=== PATIENT | female | born 1960 | race Caucasian/White ===

== ENCOUNTER 2020-07-04 11:42 | Day surgery (SDC) | payer OTHER ==
[~2020-07-04] VITALS: Ht 162.6 cm; Wt 92.4 kg
[2020-07-04] MEDS ORDERED: CHLORHEXIDINE 15 ML UDC ONE (12:23)
[2020-07-04] MEDS ORDERED: PLEASE ENTER HEIGHT AND WEIGHT MC SCH (12:30)
[2020-07-04] MEDS ORDERED: LACTATED RINGERS 1,000 ML IV SCH (12:30)
[2020-07-04] MEDS ORDERED: PLEASE ENTER ALLERGIES MC SCH (12:30)
[2020-07-04] MEDS ORDERED: MIDAZOLAM 1 MG/ML, 2ML ONE (12:41)
[2020-07-04] MEDS ORDERED: FENTANYL PF 250 MCG/5ML ONE (12:41)
[2020-07-04] MEDS ORDERED: BENA10TA59 PO (12:42)
[2020-07-04] MEDS ORDERED: FISH OIL PO (12:42)
[2020-07-04] MEDS ORDERED: LIRA0.6P SQ (12:42)
[2020-07-04] MEDS ORDERED: DAPA1TAB3 PO (12:42)
[2020-07-04] MEDS ORDERED: INSU100V35 SQ (12:42)
[2020-07-04] MEDS ORDERED: ATOR-2 PO (12:42)
[2020-07-04 12:48] VITALS: BP 135/85
[2020-07-04] MEDS ORDERED: CHLORHEXIDINE 15 ML UDC PO ONE (13:00)
[2020-07-04] MEDS ORDERED: BUPIVACAINE/PF 0.25% ONE (13:29)
[2020-07-04] MEDS ORDERED: EPINEPHRINE 1 MG/ML, 1ML ONE (13:29)
[2020-07-04] MEDS ORDERED: PROPOFOL 10 MG/ML, 20ML ONE (14:22)
[2020-07-04] MEDS ORDERED: SUCCINYLCHOLINE 20 MG/ML, 10ML ONE (14:22)
[2020-07-04] MEDS ORDERED: ONDANSETRON 2MG/ML, 2ML ONE ×2 (14:22→14:25)
[2020-07-04] MEDS ORDERED: ROCURONIUM 10MG/ML,5ML ONE (14:22)
[2020-07-04] MEDS ORDERED: DEXAMETHASONE 4 MG/ML, 5ML ONE (14:22)
[2020-07-04] MEDS ORDERED: PROMETHAZINE 25 MG/ML, 1ML IVPush PRN (15:00)
[2020-07-04] MEDS ORDERED: DIPHENHYDRAMINE 50 MG/ML, 1ML IVPush PRN ×2 (15:00)
[2020-07-04] MEDS ORDERED: hydrALAzine 20 MG/ML, 1ML IV PRN (15:00)
[2020-07-04] MEDS ORDERED: LABETALOL 5MG/ML, 20ML IV PRN (15:00)
[2020-07-04] MEDS ORDERED: MEPERIDINE/PF 25MG/0.5ML IVPush PRN (15:00)
[2020-07-04] MEDS ORDERED: PROMETHAZINE 12.5 MG SUPP PR PRN (15:00)
[2020-07-04] MEDS ORDERED: MIDAZOLAM 1 MG/ML, 2ML IV PRN (15:00)
[2020-07-04] MEDS ORDERED: FENTANYL PF 100 MCG/2ML IV PRN (15:00)
[2020-07-04] MEDS ORDERED: OXYcodone 5 MG/5 ML ORAL.SOL UDC PO PRN (15:00)
[2020-07-04] MEDS ORDERED: ALBUTEROL SULFATE 2.5 MG/3 ML NPPB PRN (15:00)
[2020-07-04] MEDS ORDERED: ACETAMINOPHEN 325 MG TABLET PO PRN (15:00)
[2020-07-04] MEDS ORDERED: DIAZEPAM 5 MG/ML, 2ML IVPush PRN (15:00)
[2020-07-04] MEDS ORDERED: HYDROmorphone 1 MG/ML, 1ML INJ IVPush PRN (15:00)
[2020-07-04] MEDS ORDERED: EPHEDRINE 50 MG/ML, 1ML IVPush PRN (15:00)
[2020-07-04] MEDS ORDERED: ONDANSETRON 2MG/ML, 2ML IVPush PRN (15:00)
[2020-07-04] MEDS ORDERED: ACETAMINOPHEN 650 MG/20.3 ML UDC ONE (15:01)
[2020-07-04] MEDS ORDERED: OXYcodone 5 MG/5 ML ORAL.SOL UDC ONE (15:02)
== END 2020-07-04 17:13 | disposition home or self-care (01) ==
LOC: OUT 11:42
PROVIDERS: ATTEND Orthopaedic Surgery
DX: S52.392A Other fracture of shaft of radius, left arm, initial encounter for closed fracture (principal); S52.292A Other fracture of shaft of left ulna, initial encounter for closed fracture; G89.18 Other acute postprocedural pain; E11.9 Type 2 diabetes mellitus without complications; I10 Essential (primary) hypertension; E78.5 Hyperlipidemia, unspecified; E66.9 Obesity, unspecified; Z20.822 Contact with and (suspected) exposure to COVID-19; Z68.35 Body mass index [BMI] 35.0-35.9, adult; Z79.891 Long term (current) use of opiate analgesic; Z79.899 Other long term (current) drug therapy; Z88.0 Allergy status to penicillin; Z88.1 Allergy status to other antibiotic agents; Z83.3 Family history of diabetes mellitus; Z82.49 Family history of ischemic heart disease and other diseases of the circulatory system; X58.XXXA Exposure to other specified factors, initial encounter; Y93.89 Activity, other specified; Y92.89 Other specified places as the place of occurrence of the external cause; Y99.8 Other external cause status
CPT/HCPCS: 25575; 64415; 73090; 82962; 87635; 93005; C1713; J0171; J0330; J1100; J2250; J2405; J2704; J3010; J7120; 76000